=== PATIENT | female | born 1965 | race Two or more races ===

== ENCOUNTER 2019-03-26 09:36 | Emergency (ER) | payer OTHER ==
[~2019-03-26] VITALS: Ht 162.6 cm; Wt 57.6 kg
[2019-03-26] MEDS ORDERED: ZETIA10 MG (09:44)
== END 2019-03-26 16:47 | disposition home or self-care (01) ==
LOC: ER 09:36
DX: N20.1 Calculus of ureter (principal)

== ENCOUNTER 2019-03-28 21:37 | Inpatient (IN) | payer OTHER ==
[~2019-03-28] VITALS: Ht 162.6 cm; Wt 57.6 kg
[~2019-03-28 21:37] MED LIST: ZETIA10 MG
[2019-04-05] MEDS ORDERED: ZETIA10 MG PO (12:39)
[2019-04-05] MEDS ORDERED: ACIDOPHILUS-PE1 EAC2 PO (12:39)
[2019-04-05] MEDS ORDERED: BUTALB-ASPIRIN1 EACH PO (12:39)
[2019-04-05] MEDS ORDERED: FAMOTIDINE20 MG PO (12:39)
[2019-04-05] MEDS ORDERED: ALBUTEROL0.63 MG/3 IH (13:09)
== END 2019-04-05 18:18 | disposition home or self-care (01) | DRG 689 ==
LOC: ER 21:37 → ICU-2 03-29 08:45 → SEC-K 03-31 07:44 → MEDJ 03-31 11:55
PROVIDERS: ADMIT Internal Medicine Geriatric Medicine
PROC: BW21ZZZ Computerized Tomography (CT Scan) of Abdomen and Pelvis (ICD-10-PCS; principal; 2019-03-29)
PROC: 05HB33Z Insertion of Infusion Device into Right Basilic Vein, Percutaneous Approach (ICD-10-PCS; 2019-03-29)
PROC: 4A033R1 Measurement of Arterial Saturation, Peripheral, Percutaneous Approach (ICD-10-PCS; 2019-03-29)
PROC: 8E0ZXY6 Isolation (ICD-10-PCS; 2019-03-31)
PROC: 4A12X4Z Monitoring of Cardiac Electrical Activity, External Approach (ICD-10-PCS; 2019-03-31)
PROC: 3E0F7GC Introduction of Other Therapeutic Substance into Respiratory Tract, Via Natural or Artificial Opening (ICD-10-PCS; 2019-03-31)
PROC: BW41ZZZ Ultrasonography of Abdomen and Pelvis (ICD-10-PCS; 2019-04-04)
PROC: BB4BZZZ Ultrasonography of Pleura (ICD-10-PCS; 2019-04-04)
PROC: BB24ZZZ Computerized Tomography (CT Scan) of Bilateral Lungs (ICD-10-PCS; 2019-04-04)
DX: N13.6 Pyonephrosis (principal); A41.9 Sepsis, unspecified organism; R65.21 Severe sepsis with septic shock; N20.1 Calculus of ureter; J98.11 Atelectasis; J90 Pleural effusion, not elsewhere classified; J45.31 Mild persistent asthma with (acute) exacerbation; N17.8 Other acute kidney failure; N39.0 Urinary tract infection, site not specified; B96.29 Other Escherichia coli [E. coli] as the cause of diseases classified elsewhere

== ENCOUNTER 2019-05-02 11:45 | Outpatient (CLI) | payer OTHER ==
[~2019-05-02 11:45] MED LIST changes: +ACIDOPHILUS-PE1 EAC2 PO; +ALBUTEROL0.63 MG/3 IH; +BUTALB-ASPIRIN1 EACH PO; +FAMOTIDINE20 MG PO; +ZETIA10 MG PO
== END 2019-05-02 11:47 | disposition home or self-care (01) ==
LOC: RAD 11:45
DX: J90 Pleural effusion, not elsewhere classified (principal); N20.0 Calculus of kidney

== ENCOUNTER 2019-05-27 11:19 | Outpatient (CLI) | payer OTHER | END 2019-05-27 12:05 | disposition home or self-care (01) | LOC: LAB 11:19 | DX: N30.00 Acute cystitis without hematuria (principal) ==

== ENCOUNTER → 2019-06-29 10:55 | Outpatient (CLI) | payer OTHER | END | disposition home or self-care (01) | LOC: LAB 10:55 | DX: E21.2 Other hyperparathyroidism (principal) ==

== ENCOUNTER 2022-11-17 20:51 | Emergency (ER) | payer OTHER ==
[~2022-11-17] VITALS: Ht 162.6 cm; Wt 53.5 kg
== END 2022-11-18 02:44 | disposition home or self-care (01) ==
LOC: ER 20:51
DX: S09.8XXA Other specified injuries of head, initial encounter (principal); X58.XXXA Exposure to other specified factors, initial encounter; Y93.89 Activity, other specified; Y92.89 Other specified places as the place of occurrence of the external cause; Y99.8 Other external cause status; S14.5XXA Injury of cervical sympathetic nerves, initial encounter; M54.59 Other low back pain; M54.6 Pain in thoracic spine